=== PATIENT | male | born 1995 ===

== ENCOUNTER 2021-09-04 17:06 | Inpatient (IN) | payer SELFPAY ==
[2021-09-04 17:17] VITALS: BMI 28.5
[2021-09-04 17:22] VITALS: BP 154/107; PULSE 97; RESP 20; TEMP 36.8; O2SAT 96
--- NOTE | 2021-09-04 17:45 | PC.NURSE ---
Addendum entered by Lori Adkins RN 09/04/21 17:58: DR ACEVEDO GAVE ORDERS TO RESUME MEDS ORDERED. MEDS CONFIRMED WITH PT AND PHARMACY. Original Note: PT PRESENTS FROM [facility]. HAS HAD INCREASING SI. WROTE SUICIDE NOTE AND HAD PLAN TO SLIT THROAT BUT WENT TO ER INSTEAD. PT REPORTS THAT HE AND HIS GIRLFRIEND HAVE BEEN HAVING ISSUES AND ARGUING LEADING TO INCREASE IN THESE THOUGHTS. HX OF ANXIETY AND DEPRESSION. DENIES AVH AND HI. DENIES DRUG USE OUTSIDE OF [facility]. UDS + THC. NO PRIOR INPATIENT STAYS. OUTPATIENT AT [facility]. CALM, COOPERATIVE AND A&OX4.
[2021-09-04] MEDS: lamoTRIgine 25 mg Tablet PO (18:12)
[2021-09-04] MEDS: BuSPIRONE 10 mg Tablet 20 MG PO (18:12)
[2021-09-04 20:21] VITALS: BP 150/89; PULSE 103; RESP 18; O2SAT 95
[2021-09-05 06:00] VITALS: BP 128/90; PULSE 70; RESP 18; O2SAT 96
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
[2021-09-05] MEDS: lamoTRIgine 25 mg Tablet 50 MG PO ×2 (08:42→17:58)
[2021-09-05] MEDS: BuSPIRONE 10 mg Tablet 20 MG PO ×2 (08:42→17:57)
[2021-09-05] MEDS: fluoxetine 10 mg Capsule PO (08:43)
[2021-09-05] MEDS: pantoprazole DR 40 mg Tablet PO (08:44)
[2021-09-05 14:00] VITALS: BP 142/90; PULSE 101; RESP 20; TEMP 37; O2SAT 92
[2021-09-05 20:13] VITALS: BP 140/96; PULSE 72; RESP 17; TEMP 36.8; O2SAT 95
[2021-09-05] MEDS: OLANZapine 10 mg TABLET PO (20:34)
[2021-09-06 06:00] VITALS: BP 123/75; PULSE 55; RESP 18; TEMP 36.4; O2SAT 96
--- NOTE | 2021-09-06 08:04 | W.PM.NPUPNS ---
Subjective NPU Subjective: He says that he feels much better today. He had a talk with some family members yesterday and they were very supportive. They said that they were proud of him for getting the help that he needed. He said that he slept about 10 hours last night and feels much better this morning. He took the olanzapine 10 mg which is his normal dose and he says that he was taking at home. The Lamictal was increased to 50 mg twice daily yesterday and Prozac will be increased to 20 mg today. Mental Status Exam MSE Comments: This is an overweight 26-year-old male who appears approximately his stated age and is in no acute distress. He was pleasant and cooperative with the evaluation. His hair is not combed. The top part is blonde and the bottom part of his shade of green and blue. He has a full baker psychomotor activity is normal. Speech is at a regular rate and rhythm, normal volume, good articulation, not pressured. Alert, oriented X3 Attention and concentration appear to be normal. Memory is intact Mood is mildly depressed Affect is mildly dysphoric. Thought process is logical and goal-directed. Thought content: Denies auditory and visual hallucinations. No delusions or paranoia are noted. No current suicidal ideation, and no homicidal ideation. Fund of knowledge is average. Insight and judgment appear to be fairly good. Impulse control is only fair. Cognition: Patient Appearance: Appropriate Ability to Follow Directions: Good Patient Orientation (long list): Person, Place, Name, Age and Birthday Comprehension Ability: Understands Concepts Hallucination Type: None Thought Process: Appropriate Affect: Affect Description: Appropriate Behavior: Patient Behavior: Appropriate Speech Pattern: Appropriate Vitals/I&O/Wt Last Vital Signs Temp 97.6 F 09/06/21 06:00 Pulse 55 L 09/06/21 06:00 Resp 18 09/06/21 06:00 BP 123/75 09/06/21 06:00 Pulse Ox 96 09/06/21 06:00 Weight last 48 hrs Weight 95.254 kg Weight 95.254 kg A&P Assessment and plan (1) Major depressive disorder: Status: Acute (2) Suicidal ideations: Status: Acute (3) Anxiety: Status: Acute (4) Cannabis abuse: Status: Acute Plan This is a 26-year-old male with longstanding anxiety and depression with recent suicidal ideation that has been gradually worsening. He came close to cutting himself with a knife yesterday. Plan: 1. Continue current medication. Increase Lamictal to 50 mg twice daily. Change olanzapine 10 mg to bedtime. increase Prozac to 20 mg. 2. Continue every 15 minute checks for safety. 3. Encourage individual, group and milieu therapies. 4. Encourage sober living treatment after discharge at the highest level of care to which he is willing to commit. 5. We will monitor for safety for himself in the community prior to discharge. Involuntary Hold Information 96 Hour Hold: 96 Hour Involuntary Admission: No Attestations NPU Medical Necessity Statement*: Inpatient hospitalization is medically necessary and the clinically appropriate intervention at this time. We will initiate medications and make changes as indicated. 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
[2021-09-06] MEDS: lamoTRIgine 25 mg Tablet 50 MG PO ×2 (08:08→17:24)
[2021-09-06] MEDS: pantoprazole DR 40 mg Tablet PO (08:09)
[2021-09-06] MEDS: fluoxetine 10 mg Capsule 20 MG PO (08:09)
[2021-09-06] MEDS: BuSPIRONE 10 mg Tablet 20 MG PO ×2 (08:09→17:24)
[2021-09-06 14:00] VITALS: BP 140/91; PULSE 91; RESP 18; TEMP 37.2; O2SAT 97
[2021-09-06] MEDS: OLANZapine 10 mg TABLET PO (20:35)
[2021-09-06 21:13] VITALS: BP 144/95; PULSE 72; RESP 17; TEMP 36.7; O2SAT 97
[2021-09-07 06:00] VITALS: BP 135/84; PULSE 62; RESP 17; TEMP 36.3; O2SAT 97
[2021-09-07] MEDS: BuSPIRONE 10 mg Tablet 20 MG PO (08:51)
[2021-09-07] MEDS: fluoxetine 10 mg Capsule 20 MG PO (08:51)
[2021-09-07] MEDS: lamoTRIgine 25 mg Tablet 50 MG PO (08:51)
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
[2021-09-07 13:29] VITALS: BP 135/84; PULSE 62; RESP 17; TEMP 36.3; O2SAT 97
[2021-09-07 14:00] VITALS: BP 131/88; PULSE 77; RESP 18; TEMP 37.1; O2SAT 94
== END 2021-09-07 15:18 | disposition home or self-care (01) | DRG 881 ==
PROVIDERS: Admitting Provider Psychiatry & Neurology Psychiatry; Visit Provider Psychiatry & Neurology Psychiatry
DX: F32.9 Major depressive disorder, single episode, unspecified (principal); R45.851 Suicidal ideations; F41.9 Anxiety disorder, unspecified; F12.10 Cannabis abuse, uncomplicated
CPT/HCPCS: 97150